=== PATIENT | female | born 1985 | race Caucasian/White ===

== ENCOUNTER 2019-02-28 05:09 | Inpatient (IN) | payer BC ==
--- NOTE | 2019-02-22 07:45 | PCM.LDHP ---
L&D History of Present Illness - General Date of Service: 02/28/19 Admit Problem/Dx: Admission Diagnosis/Problem Admission Diagnosis/Problem 02/22/19 07:33 Maria Luisa is a 33-year-old 2 para 1001 white female is scheduled for admission on 02/28/2019 at 39-1/7 weeks gestational age with an BENNIE of 03/06/2019 with the diagnosis of nas breech presentation. She is admitted for an attempt at external cephalic version. If successful will proceed to induction of labor. If unsuccessful will proceed to primary section. Source of Information: Patient History Limitations: Reports: No Limitations - History of Present Illness Introduction:: Maria Luisa is a 33-year-old 2 para 1001 white female is scheduled for admission on 02/28/2019 at 39-1/7 weeks gestational age with an BENNIE of 03/06/2019 with the diagnosis of nas breech presentation. She is admitted for an attempt at external cephalic version. If successful will proceed to induction of labor. If unsuccessful will proceed to primary section.Patient is been noted for the last 4 weeks that babies been in a breech presentation, confirmed with ultrasound. It appears to be nas breech presentation. There is normal amount of amniotic fluid. size is appropriate for dates. The procedure, risks, benefits and alternatives of care including external cephalic version, primary section or delivery of the baby by vaginal breech are discussed in detail with patient. Patient appears to understand and wishes to proceed with attempted external cephalic version. She is made aware of the risks of external cephalic version, success rate of 50-60% and possible need for dissection if unsuccessful. She is also aware that if version is successful we'll proceed with induction of labor with near continuous monitoring of heart tones. COMPUTER SYSTEMS SUPPORT SPECIALIST history: Patient is a 2 para 1001. Her BENNIE is 03/06/2019 placing her at 39-1/7 weeks gestational age upon admission for this version attempt. BENNIE is set by a certain last menstrual starting on 05/30/2018 and supported by at least 3 ultrasounds done on 08/15/2018 10/26/2018 end 02/06/2019. Estimated weight on last ultrasound was 6 lbs. 2 oz. (2789 g). Ultimately unremarkable. She is a centering patient. Her group B strep screen was negative on 02/08/2019. She plans to breast-feed the baby. She had an Hartley depression screening score of 0/30 on 11/02/2018. She underwent genetic testing which was negative. Quad screen was performed. Weight gain during the course of the was from 140 pounds up to 158 pounds for an 18 pound gain. Her fundal height growth has been appropriate. Her vital signs have been stable. Baby has been active. Past obstetric history includes the following: Normal spontaneous vaginal delivery 04/11/2016 at 40-1/7 weeks gestational age after 24 hours labor. weight 6 lbs. 15 oz.-female infant- back extraction delivery. Child's name is Tex Bartlett Laboratory testing and shows blood to be O+ with a negative and by screen. First hemoglobin was 13.2 g/dL. Platelets were 285,000. She is rubella immune. RPR is nonreactive. Urine culture was negative. Hepatitis B surface antigen and HIV assay were both negative. Chlamydia and gonorrhea assays were both negative. Second trimester labs showed hemoglobin 12.2 g/ deciliter. Platelets are 235,000 and diabetic screening test was normal at 82. Third trimester RPR was nonreactive. Group B strep screen was negative. Allergies: penicillins-reaction unknown Medications: 1. vitamins 1 daily 2. Ranitidine 150 mg by mouth daily when necessary for dyspepsia 3. Triamcinolone acetonide 0.025 external cream applied when necessary. Past medical history: 1. Normal spontaneous vaginal delivery 04/11/2016 at 40-1/7 weeks gestational age after 24 hours labor. weight 6 lbs. 15 oz.female infantback extraction delivery. Child's name is Tex Bartlett 2. Abnormal passer 2092. Eczema with first treatment in 2014 Family history: He prepped mother is alive and well at age 61 on antihypertensive medications. Father is alive and well at age 61. One sister with hypothyroidism on medication. Paternal grandfather secondary to uncontrolled diabetes. Maternal grandmother is alive and well. Paternal grandfather secondary blood vessels/heart disease. Paternal grandmother is alive and well. No family history of cancer, bleeding disorders, clotting disorders, anesthesia or -related issues. Social history: Patient is , lives in [place]. She does not use any significant most alcohol, drugs or tobacco. Out graduate. is [employer]. Review of systems: In general patient has no complaints. He is active. No contractions noted. Skin: Negative Lungs: No infectious symptoms or shortness of breath Cardiovascular: No chest pain or exercise intolerance Breasts: Changes associated with . GI: Negative : Body habitus changes associated with . Musculoskeletal: Negative Neurological: Negative In general the patient is well-developed, well-nourished, pleasant female of stated age in no acute distress. Baby has been active. On last evaluation in clinic blood pressure was 122/78. Weight was 158 increased from a pre weight of 140. Height is 5 feet 1. Prepregnancy body mass index is 26.4. Skin is warm dry without lesions. HEENT, neck and back within normal limits. Lungs are clear with good breath sounds in all lung pearson. Cardiovascular exam shows regular and rhythm without murmurs. Breast exam is deferred abdomen not first visit and found to be normal. Patient plans to breast-feed. Abdomen is gravid consistent with term intrauterine with last fundal height at 38 cm. Genital digital exam on last evaluation clinic shows cervix to be 2 cm, 60% effaced, soft, mid position, -3 station, breech presentation. Extremities and neurological exam are grossly within normal limits. - Related Data Allergies/Adverse Reactions: Allergies Allergy/AdvReac Type Severity Reaction Status Date / Time Penicillins Allergy Rash Verified 04/10/16 11:36 Home Medications: Home Meds Ibuprofen [IJD: Ibuprofen] 600 mg PO Q4H PRN #30 tablet 04/12/16 [Rx] Vit with Ca/FA/Iron [ Plus Iron] 1 each PO DAILY tablet [Rx] Past Medical History - Past Surgical History HEENT Surgical History: Reports: Oral Surgery Social & Family History - Family History Family Medical History: Noncontributory H&P Review of Systems - Review of Systems: Review Of Systems: See Below L&D Exam - Exam Exam: See Below Problem List Initiated/Reviewed/Updated: Yes Assessment/Plan Comment:: 1. 39-06/06 week intrauterine at the time of planned admission for attempt at external cephalic version for nas breech presentation. Procedure, risks, benefits, limitations and follow-up also success rate are discussed with patient in detail. She is understanding that if version is successful she will proceed to induction of labor and if unsuccessful will proceed to primary section. section has been discussed in detail with the patient also. She is comfortable with this plan. 2. Group B strep screen negative 3. Patient plans to breast-feed 4. RPR is nonreactive. 5. Rubella titer shows immunity. 6. T dap Was given on 01/04/2019 Plan: 1. Attempt at external cephalic version under ultrasound guidance after treatment with terbutaline IV. If successful will proceed to Pitocin induction of labor with artificial rupture membranes augmentation. If unsuccessful proceed to primary section. Both procedures have been discussed with patient including risks benefits and limitations and follow-up. 2. DVT prophylaxis with SCDs if we proceed with section or if patient is in labor with epidural. 3. Preoperative labs consistent CBC, urinalysis, RPR per protocol, type and screen 4. If we proceed to section will give prophylactic antibiotics of Ancef 2 g IV preop. 5. Support breast-feeding decision. We proceed to section will have nurse present in the recovery room so patient is allowed to nurse at that time.
[~2019-02-28 05:09] MED LIST: Nalbuphine 10 MG/1 ML Vial IVPUSH PRN; Sodium Chloride 0.9% 10 ML Syringe FLUSH PRN
[2019-02-28] MEDS ORDERED: Lactated Ringers 1,000 ML IV SCH (05:15)
[2019-02-28] MEDS ORDERED: FLU Vacc QS2019-20(6MOS+)/PF 60 MCG/0.5 ML SYRINGE IM ONE (06:30)
--- NOTE | 2019-02-28 06:49 | PCM.PREANE ---
Preanesthetic Assessment - Anesthesia/Transfusion/Family Hx Anesthesia History: Prior Anesthesia Without Reaction Family History of Anesthesia Reaction: No Transfusion History: No Prior Transfusion(s) Intubation History: Unknown - Review of Systems General: No Symptoms Pulmonary: No Symptoms (ETOH: socially when not ) Cardiovascular: No Symptoms Gastrointestinal: No Symptoms (GERD) Neurological: No Symptoms Other: Reports: Sinus Problem (recent sinus infection 2 weeks ago/on an antibiotic, post nasal drip still noted.) - Physical Assessment NPO Status Date: 02/27/19 NPO Status Time: 19:00 Vital Signs: Last Vital Signs Temp 37.1 C 02/28/19 05:08 Pulse 70 02/28/19 05:08 Resp 16 02/28/19 05:08 BP 124/86 02/28/19 05:08 Pulse Ox 97 02/28/19 05:08 Height: 1.55 m Weight: 72.575 kg ASA Class: 2 Mental Status: Alert & Oriented x3 Airway Class: Mallampati = 2 Dentition: Reports: Normal Dentition, Caries Thyro-Mental Finger Breadths: 3 Mouth Opening Finger Breadths: 3 ROM/Head Extension: Full Lungs: Clear to Auscultation, Normal Respiratory Effort Cardiovascular: Regular Rate, Regular Rhythm, No Murmurs - Lab Values: Laboratory Last Values WBC 10.56 K/mm3 (3.98-10.04) H 02/28/19 05:25 RBC 4.60 M/mm3 (3.98-5.22) 02/28/19 05:25 Hgb 13.1 gm/dl (11.2-15.7) 02/28/19 05:25 Hct 37.7 % (34.1-44.9) 02/28/19 05:25 MCV 82.0 fl (79.4-94.8) D 02/28/19 05:25 MCH 28.5 pg (25.6-32.2) 02/28/19 05:25 MCHC 34.7 g/dl (32.2-35.5) 02/28/19 05:25 RDW Std Deviation 40.0 fL (36.4-46.3) 02/28/19 05:25 Plt Count 253 K/mm3 (182-369) 02/28/19 05:25 MPV 11.1 fl (9.4-12.3) 02/28/19 05:25 Neut % (Auto) 57.1 % (34.0-71.1) 02/28/19 05:25 Lymph % (Auto) 33.3 % (19.3-51.7) 02/28/19 05:25 Lee % (Auto) 8.0 % (4.7-12.5) 02/28/19 05:25 Eos % (Auto) 1.0 (0.7-5.8) 02/28/19 05:25 Baso % (Auto) 0.6 % (0.1-1.2) 02/28/19 05:25 Neut # (Auto) 6.02 K/mm3 (1.56-6.13) 02/28/19 05:25 Lymph # (Auto) 3.52 K/mm3 (1.18-3.74) 02/28/19 05:25 Lee # (Auto) 0.85 K/mm3 (0.24-0.36) H 02/28/19 05:25 Eos # (Auto) 0.11 K/mm3 (0.04-0.36) 02/28/19 05:25 Baso # (Auto) 0.06 K/mm3 (0.01-0.08) 02/28/19 05:25 Blood Type O POSITIVE 02/28/19 05:25 Gel Antibody Screen Negative 02/28/19 05:25 Above labs reviewed and noted and within acceptable ranges to proceed with procedure. - Allergies Allergies/Adverse Reactions: Allergies Allergy/AdvReac Type Severity Reaction Status Date / Time Penicillins Allergy Rash Verified 02/28/19 05:24 - Anesthesia Plan Pre-Op Medication Ordered: None - Acknowledgements Anesthesia Type Planned: Spinal, Epidural Pt an Appropriate Candidate for the Planned Anesthesia: Yes Alternatives and Risks of Anesthesia Discussed w Pt/Guardian: Yes Pt/Guardian Understands and Agrees with Anesthesia Plan: Yes PreAnesthesia Questionnaire - Past Surgical History HEENT Surgical History: Reports: Oral Surgery - HOME MEDS Home Medications: Home Meds Vit with Ca/FA/Iron [ Plus Iron] 1 each PO DAILY tablet [Rx] - CURRENT (IN HOUSE) MEDS Current Meds: Current Medications Lactated Ringer's (Ringers, Lactated) 1,000 mls @ 100 mls/hr IV ASDIRECTED JACINTA Influenza Virus Vaccine (Pharmacy To Dose - Influenza Vaccine) 1 each IM ONETIME ONE Stop: 02/28/19 06:13 Nalbuphine HCl (Nubain) 10 mg IVPUSH Q2H PRN PRN Reason: Pain Sodium Chloride (Saline Flush) 10 ml FLUSH ASDIRECTED PRN PRN Reason: Keep Vein Open Terbutaline Sulfate (Brethine) 0.25 mg IV ONETIME ONE Stop: 02/28/19 07:01 Discontinued Medications Influenza Virus Vaccine (Fluzone Quad Syringe) 60 mcg IM .ONCE ONE Stop: 02/28/19 06:31
[2019-02-28] MEDS ORDERED: Terbutaline 1 MG/ML SDV IV ONE (07:00)
[2019-02-28] MEDS ORDERED: Citric Acid/Sodium Citrate Solution 30 ML Cup PO ONE (07:27)
[2019-02-28] MEDS ORDERED: Metoclopramide 10 MG/2 ML SDV IVPUSH ONE (07:27)
[2019-02-28] MEDS ORDERED: Metoclopramide 10 MG/2 ML SDV ONE (07:30)
[2019-02-28] MEDS ORDERED: Citric Acid/Sodium Citrate Solution 30 ML Cup ONE (07:31)
[2019-02-28] MEDS ORDERED: Bupivacaine 0.5% 30 ML SDV ONE (07:33)
[2019-02-28] MEDS ORDERED: Ketorolac 30 MG/ML SDV ONE (07:37)
[2019-02-28] MEDS ORDERED: Lactated Ringers 2,000 ML ONE (07:37)
[2019-02-28] MEDS ORDERED: Ondansetron 4 MG/2 ML SDV ONE (07:37)
[2019-02-28] MEDS ORDERED: Phenylephrine/Normal Saline 100 MCG/ML 10 ML Syringe ONE (07:37)
[2019-02-28] MEDS ORDERED: Oxytocin 10 Units/1 ML SDV ONE (07:37)
[2019-02-28] MEDS ORDERED: ceFAZolin 1 GM Vial ONE (07:37)
[2019-02-28] MEDS ORDERED: Morphine PF 10 MG/10 ML SDV ONE (07:39)
--- NOTE | 2019-02-28 07:57 | PCM.SN ---
- Free Text/Narrative Note: Procedure Note: Attempt at external cephalic version Patient is admitted early on the morning of 02/28/2019 diagnosis 39-1/7 week intrauterine , nas breech presentation. Plan was to proceed with an attempt at external cephalic version and if successful induction of labor. If unsuccessful proceed to primary section. The procedure, risks, benefits , alternatives of care including proceeding right away to all discussed with patient. She appeared to understand, wish to proceed and had signed consents for both. She had previous labs drawn and completed and had an IV in place. Patient been monitored for an extended period time and had a reactive nonstress test. She is showing no significant signs of labor other than an occasional contraction. Bedside ultrasound was performed and showed continuation of nas breech presentation. She was administered 0.25 mg of terbutaline IV which had been diluted to 5 mL with IV fluid. This administered over 2-3 minutes. Attempt was then made under ultrasound guidance to turn the baby. Attempted was made to roll the baby forward as baby's back was to the patient's left. This however was unsuccessful. Patient tolerated this well. Monitoring of heart rate showed the heart rate went down with this but rebounded without problems. A second attempt was made upon the request of the patient. This also was unsuccessful and decision was made to proceed to section. monitoring thereafter was reassuring until patient was transferred for C- section. She tolerated well.
[2019-02-28] MEDS ORDERED: fentaNYL 100 MCG/2 ML SDV IVPUSH PRN (08:11)
[2019-02-28] MEDS ORDERED: diphenhydrAMINE 50 MG/ML SDV IVPUSH PRN ×2 (08:11→09:50)
[2019-02-28] MEDS ORDERED: ePHEDrine 50 MG/ML SDV IVPUSH PRN ×2 (08:11→09:50)
[2019-02-28] MEDS ORDERED: Ondansetron 4 MG/2 ML SDV IVPUSH PRN (08:11)
[2019-02-28] MEDS ORDERED: HYDROmorphone 0.5 MG/0.5 ML Syringe IVPUSH PRN (08:11)
[2019-02-28] MEDS ORDERED: Phenylephrine 1 MG in Sodium Chloride 0.9% 10 ML IV SCH (08:15)
--- NOTE | 2019-02-28 08:50 | PCM.POSTAN ---
POST ANESTHESIA ASSESSMENT - MENTAL STATUS Mental Status: Alert - VITAL SIGNS Vital Signs: Last Vital Signs Temp 97.8f 02/28/19 0840 Pulse 80 02/28/19 0840 Resp 10 02/28/19 0840 BP 99/66 02/28/19 0840 Pulse Ox 97 02/28/19 0840 - RESPIRATORY Respiratory Status: Respiratory Rate WNL, Airway Patent, O2 Saturation Stable - CARDIOVASCULAR CV Status: Pulse Rate WNL, Blood Pressure Stable - GASTROINTESTINAL GI Status: No Symptoms - POST OP HYDRATION Hydration Status: Adequate & Stable
--- NOTE | 2019-02-28 08:55 | PCM.OPNOTE ---
- General Post-Op/Procedure Note Date of Surgery/Procedure: 02/28/19 Operative Procedure(s): Primary lower uterine segment transverse section through Pfannenstiel skin incision Findings: Uterus, tubes and ovaries consistent with term . Baby in nas breech presentation. Amniotic fluid is clear. No abnormalities noted. Pre Op Diagnosis: 1. 39-1/7 week intrauterine , nas breech presentation Post-Op Diagnosis: Same with delivery of viable, alonso, male with Apgars of 8 and 8, weight of 3180 g (7 lbs. 15 oz.) at 0813 hrs. on 02/28/2019. Anesthesia Technique: Spinal Other Anesthesia Type: Marcaine 0.5%20 mL local Primary Surgeon: Santana Gutierrez Secondary Surgeon: Victorino Jones Anesthesia Provider: Alison Hendrickson Yarn Wrapper: Emil Chairez Reason Yarn Wrapper Was Necessary: Retraction, assistance, patient safety, quality. Fluid Replacement, Intraop: 1,400 Output, Urine Amount: 100 EBL in mLs: 500 Drain/Tube Comments:: Indwelling bladder catheter Complications: None Condition: Good Free Text/Narrative:: Surgery duration: 24 minutes Surgery duration: Procedure: The patient is appropriately consented. Patient was transferred to the room and placed in a sitting position. Spinal anesthesia was administered. After confirmation of adequate anesthesia patient was placed in a supine position with a wedge under her right side to facilitate left lateral positioning. The patient was prepped and draped in usual fashion after Tidwell catheter was already placed . The anesthetic was checked and found to be adequate. 20 mL of Marcaine 0.5% was injected locally in the Pfannenstiel incision site. The Pfannenstiel skin incision was then made and carried down through skin, subcutaneous and fascial layers. The fascia was then undermined superiorly and inferiorly to allow for adequate operating room. The recti muscles midline and preperitoneal fat was bluntly dissected. Peritoneal cavity was entered longitudinally. The vesicouterine peritoneum was then incised transversely and bladder flap was developed. Myometrium was incised transversely to the level of the amniotic sac. This incision was extended bilaterally in a blunt fashion. The amniotic sac was then ruptured resulting in clear amniotic fluid. A hand is placed in the low uterine segment and the baby's breech was brought forth through the incision. The baby was completely delivered using fundal pressure, complete breech extraction technique in a routine fashion. The nose and mouth were bulb suctioned. Baby's cord was clamped x2 cut and baby was handed off to attending bureau director Dr akers. Placenta was expressed after cord blood was obtained. Uterus was then exteriorized to allow for easier closure. The cervix was assessed and found to be dilated adequately to allow egress of blood. The uterus was closed in 2 layers. The first layer a running locked suture of 0 Monocryl, the second layer a running locked vertical mattress suture of 0 Monocryl. [id number] suture was placed at mid incision to control 1 bleeder. Hemostasis confirmed at this time. Sponge instrument needle counts are correct. The uterus was returned to the abdominal cavity and lateral gutters were cleared of blood. Once again sponge needle counts are correct. The anterior abdominal wall was closed with a #1 PDS suture from angle to angle. Skin was closed with a running subcuticular stitch of 3-0 Monocryl in a vertical mattress suture fashion using a Jonnie needle. Prineo mesh/glue was then applied to further approximate the incision. It should be noted that patient received 2 g of Ancef preoperatively for infection prophylaxis and had Pitocin infused after delivery of the placenta to facilitate uterine contraction. She also had sequential compression stockings in place for DVT prophylaxis. Patient was discharged from the operating room in satisfactory condition.
[2019-02-28] MEDS ORDERED: Lanolin 100% Cream 7 GM Tube TOP PRN (09:50)
[2019-02-28] MEDS ORDERED: Ondansetron 4 MG/2 ML SDV IV PRN (09:50)
[2019-02-28] MEDS ORDERED: Docusate Sodium 100 MG Cap PO PRN (09:50)
[2019-02-28] MEDS ORDERED: Naloxone 0.4 MG/ML SDV IVPUSH PRN (09:50)
[2019-02-28] MEDS ORDERED: Dextrose 5%-Lactated Ringers 1,000 ML IV SCH ×2 (09:50→15:00)
[2019-02-28] MEDS: Simethicone 80 MG Tab.Chew PO SCH ×4 (12:21→20:04)
[2019-02-28] MEDS: Prenatal Multivitamin with Calcium/Folic Acid/Iron Tab PO SCH (12:22)
[2019-02-28] MEDS ORDERED: Sodium Chloride 0.9% 1,000 ML IV ONE (12:37)
[2019-02-28] MEDS: Ketorolac 30 MG/ML SDV IVPUSH SCH ×2 (13:59→20:02)
[2019-03-01] MEDS: Ketorolac 30 MG/ML SDV IVPUSH SCH (01:55)
--- NOTE | 2019-03-01 07:34 | PCM48HPAN ---
Post Anesthesia Note - EVALUATION WITHIN 48HRS OF ANESTHETIC Vital Signs in Normal Range: Yes Patient Participated in Evaluation: Yes Respiratory Function Stable: Yes Airway Patent: Yes Cardiovascular Function Stable: Yes Hydration Status Stable: Yes Pain Control Satisfactory: Yes Nausea and Vomiting Control Satisfactory: Yes Mental Status Recovered: Yes Vital Signs: Last Vital Signs Temp 36.3 C 03/01/19 04:16 Pulse 64 03/01/19 04:16 Resp 16 03/01/19 06:41 BP 122/84 03/01/19 04:16 Pulse Ox 98 03/01/19 06:41
[2019-03-01] MEDS: Simethicone 80 MG Tab.Chew PO SCH ×4 (08:18→20:16)
[2019-03-01] MEDS: Ibuprofen 800 MG Tab PO SCH ×2 (08:18→16:04)
[2019-03-01] MEDS: Prenatal Multivitamin with Calcium/Folic Acid/Iron Tab PO SCH (11:39)
[2019-03-01] MEDS: Acetaminophen/oxyCODONE 325-5 MG Tab PO PRN ×2 (14:00→20:16)
[2019-03-02] MEDS: Ibuprofen 800 MG Tab PO SCH ×2 (00:38→08:27)
[2019-03-02] MEDS: Acetaminophen/oxyCODONE 325-5 MG Tab PO PRN (03:23)
--- NOTE | 2019-03-02 06:22 | PCM.SN ---
- Free Text/Narrative Note: evaluation for 03/01/2019: Patient is doing well. She has minimal discomfort. She is using ibuprofen for pain. Patient is doing well in the period. Minimal lochia, voiding well, ambulated without problems. Nursing without concerns. Patient is afebrile, vital signs are stable Abdomen is flat, soft, uterus is below the umbilicus and is firm and nontender. Legs are nontender. Hemoglobin was 10.4. Assessment: /postop day #1 recovery going well. Plan: Routine care. Patient be discharged home within the next 24-48 hours.
--- NOTE | 2019-03-02 06:28 | PCM.DCSUM1 ---
Discharge Summary - Hospital Course Free Text/Narrative:: Maria Luisa is a 33-year-old 2 now para 2002 white female was admitted on 02/28/2019 with a diagnosis of 9-1/7 week intrauterine , with a nas breech presenting . Patient had been counseled less options of care and an desire to do an attempt at external cephalic version with possible vaginal delivery. She was admitted on the morning of 02/28/2019 and attempt was made at external cephalic version under ultrasound guidance. This however was unsuccessful. She was then taken to surgery for a primary lower uterine segment transverse section through Jamie skin incision under a spinal block. She delivered a viable, alonso, male infant with Apgars of 8 and 8, weight of 3180 g 7 lbs. 15 oz.) at 0813 hrs. on 02/28/2019. Patient has had a normal recovery course with pain medication utilizing ibuprofen and small amount of Percocet. She is made good bowel, latter , ambulatory recovery. She is desiring discharge home. Her hemoglobin is 10.4. Platelets are essentially normal. Patient is breast-feeding without concerns. Condition: Good. Diagnosis: Stroke: No - Discharge Data Discharge Date: 03/02/19 Discharge Disposition: Home, Self-Care 01 Condition: Good - Referral to Home Health Primary Care Physician: Santana Gutierrez MD - Patient Summary/Data Operative Procedure(s) Performed: Primary lower uterine segment transverse section through Pfannenstiel skin incision - Patient Instructions Diet: Regular Diet as Tolerated (Nursing diet with increased calories and calcium is recommended) Activity: As Tolerated (No intercourse or tampons until bleeding resolves. No driving a car lifting greater than 15 pounds 1 week.) Driving: Do Not Drive Showering/Bathing: May Shower Wound/Incision Care: Keep Operative Site/Wound Site Clean and Dry Notify Provider of: Fever, Increased Pain, Swelling and Redness, Drainage, Nausea and/or Vomiting - Discharge Plan Home Medications: Home Meds Dql392/FA/Omega3/Dha/Fish Oil [ Gummies] 1 each PO DAILY 02/28/19 [ History] Acetaminophen/oxyCODONE [Percocet 325-5 MG] 2 tab PO Q4H PRN tablet 03/02/19 [ Rx] Ibuprofen [Motrin] 800 mg PO Q8H tablet 03/02/19 [Rx] Patient Handouts: Breast Pumping Tips, and Self-Care, and Returning to Work, Delivery, Care After Referrals: Santana Gutierrez MD [Primary Care Provider] - (Return to clinic[facility]. [facility]ierrez2 weeks.) - Discharge Summary/Plan Comment DC Time >30 min.: No Discharge Summary/Plan Comment: Discharge instructions: 1. Discharge home 2. Diet, activity and follow-up discussed with patient. Recommend nursing diet with increased calories and calcium. 3. Precautions given concern increased pain, bleeding, temperature, signs/ symptoms of DVT/PE. 4. Medications per home medication was printed, discussed with and given to the patient. 5. Return to clinic-Dr. Gutierrez-[facility] in 2 weeks. Diagnosis: Term [id number]-14-8/7 weeks gestational age-Nas breech presentation , unsuccessful attempt at external cephalic version-delivered Condition: Good - Patient Data Vitals - Most Recent: Last Vital Signs Temp 36.6 C 03/02/19 03:18 Pulse 63 03/02/19 03:18 Resp 14 03/02/19 03:18 BP 110/92 H 03/02/19 03:18 Pulse Ox 98 03/02/19 03:18 Weight - Most Recent: 72.575 kg I&O - Last 24 hours: Intake & Output 03/01/19 03/01/19 03/02/19 14:59 22:59 06:59 Intake Total 240 Output Total 1100 Balance -860 Lab Results - Last 24 hrs: Laboratory Results - last 24 hr 03/01/19 Range/Units 05:14 WBC 10.49 H (3.98-10.04) K/mm3 RBC 3.72 L (3.98-5.22) M/mm3 Hgb 10.4 L D (11.2-15.7) gm/dl Hct 31.1 L (34.1-44.9) % MCV 83.6 (79.4-94.8) fl MCH 28.0 (25.6-32.2) pg MCHC 33.4 (32.2-35.5) g/dl RDW Std Deviation 40.8 (36.4-46.3) fL Plt Count 178 L D (182-369) K/mm3 MPV 11.0 (9.4-12.3) fl Neut % (Auto) 72.6 H (34.0-71.1) % Lymph % (Auto) 21.0 (19.3-51.7) % [place] % (Auto) 5.5 (4.7-12.5) % Eos % (Auto) 0.6 L (0.7-5.8) Baso % (Auto) 0.3 (0.1-1.2) % Neut # (Auto) 7.62 H (1.56-6.13) K/mm3 Lymph # (Auto) 2.20 (1.18-3.74) K/mm3 [place] # (Auto) 0.58 H (0.24-0.36) K/mm3 Eos # (Auto) 0.06 (0.04-0.36) K/mm3 Baso # (Auto) 0.03 (0.01-0.08) K/mm3 Med Orders - Current: Current Medications Diphenhydramine HCl (Benadryl) 25 mg IVPUSH Q6H PRN PRN Reason: Itching or Nausea Docusate Sodium (Colace) 100 mg PO Q12H PRN PRN Reason: Constipation Emollient Ointment (Lansinoh Hpa) 0 gm TOP ASDIRECTED PRN PRN Reason: Sore Nipples Ephedrine Sulfate (Ephedrine Sulfate) 5 mg IVPUSH SEECOMMENT PRN PRN Reason: Other Ibuprofen (Motrin) 800 mg PO Q8H [facility] Last Admin: 03/02/19 00:38 Dose: 800 mg Naloxone HCl (Narcan) 0.1 mg IVPUSH SEECOMMENT PRN PRN Reason: Respiratory Depression Ondansetron HCl (Zofran) 4 mg IV Q4H PRN PRN Reason: Nausea/Vomiting Oxycodone/Acetaminophen (Percocet 325-5 Mg) 2 tab PO Q4H PRN PRN Reason: Pain (moderate 4-6) Last Admin: 03/02/19 03:23 Dose: 1 tab Prenat Multivit/Bread Oven Operator/Iron/Folic Ac ( Plus Iron) 1 each PO DAILY [facility] Last Admin: 03/01/19 11:39 Dose: Not Given Simethicone (Simethicone) 160 mg PO QID [facility] Last Admin: 03/01/19 20:16 Dose: 160 mg Discontinued Medications Bupivacaine HCl (Marcaine 0.5%) Confirm Administered Dose 30 ml .ROUTE .[facility] ONE Stop: 02/28/19 07:34 Last Admin: 02/28/19 12:55 Dose: 20 ml Cefazolin Sodium (Ancef) Confirm Administered Dose 2 gm .ROUTE .[facility] ONE Stop: 02/28/19 07:38 Citric Acid/Sodium Citrate (Bicitra Solution) 30 ml PO ONETIME ONE Stop: 02/28/19 07:28 Last Admin: 02/28/19 07:34 Dose: 30 ml Citric Acid/Sodium Citrate (Bicitra Solution) Confirm Administered Dose 30 ml .ROUTE .[facility] ONE Stop: 02/28/19 07:32 Last Admin: 02/28/19 09:54 Dose: Not Given Diphenhydramine HCl (Benadryl) 25 mg IVPUSH Q6H PRN PRN Reason: pruritis Ephedrine Sulfate (Ephedrine Sulfate) 5 mg IVPUSH ASDIRECTED PRN PRN Reason: Hypotension Fentanyl (Sublimaze) 50 mcg IVPUSH Q5M PRN PRN Reason: Pain Hydromorphone HCl (Dilaudid) 0.5 mg IVPUSH Q15M PRN PRN Reason: Pain (severe 7-10) Lactated Ringer's (Ringers, Lactated) 1,000 mls @ 100 mls/hr IV ASDIRECTED [facility] Last Admin: 02/28/19 07:13 Dose: 100 mls/hr Lactated Ringer's (Ringers, Lactated) Confirm Administered Dose 2,000 mls @ as directed .ROUTE .[facility] ONE Stop: 02/28/19 07:38 Phenylephrine HCl 1 mg/ Sodium (Chloride) 10.1 mls @ 1 mls/sec IV TITRATE JACINTA; Protocol Dextrose/Lactated Ringer's (Dextrose 5%-Lactated Ringers) 1,000 mls @ 125 mls/ hr IV ASDIRECTED [facility] Stop: 02/28/19 17:49 Last Admin: 02/28/19 10:02 Dose: 125 mls/hr Sodium Chloride (Normal Saline) 1,000 mls @ 999 mls/hr IV ONETIME ONE Stop: 02/28/19 13:37 Last Admin: 02/28/19 12:44 Dose: 999 mls/hr Dextrose/Lactated Ringer's (Dextrose 5%-Lactated Ringers) 1,000 mls @ 200 mls/ hr IV ASDIRECTED [facility] Last Admin: 02/28/19 15:03 Dose: 200 mls/hr Influenza Virus Vaccine (Pharmacy To Dose - Influenza Vaccine) 1 each IM ONETIME ONE Stop: 02/28/19 06:13 Last Admin: 02/28/19 12:05 Dose: Not Given Influenza Virus Vaccine (Fluzone Quad Syringe) 60 mcg IM .ONCE ONE Stop: 02/28/19 06:31 Ketorolac Tromethamine (Toradol) Confirm Administered Dose 30 mg .ROUTE .STK- MED ONE Stop: 02/28/19 07:38 Ketorolac Tromethamine (Toradol) 30 mg IVPUSH Q6H [facility] Stop: 03/01/19 02:01 Last Admin: 03/01/19 01:55 Dose: 30 mg Metoclopramide HCl (Reglan) 10 mg IVPUSH ONETIME ONE Stop: 02/28/19 07:28 Last Admin: 02/28/19 07:31 Dose: 10 mg Metoclopramide HCl (Reglan) Confirm Administered Dose 10 mg .ROUTE .STK-MED ONE Stop: 02/28/19 07:31 Last Admin: 02/28/19 09:54 Dose: Not Given Morphine Sulfate (Duramorph Pf) Confirm Administered Dose 10 mg .ROUTE .STK-MED ONE Stop: 02/28/19 07:40 Nalbuphine HCl (Nubain) 10 mg IVPUSH Q2H PRN PRN Reason: Pain Ondansetron HCl (Zofran) Confirm Administered Dose 4 mg .ROUTE .STK-MED ONE Stop: 02/28/19 07:38 Ondansetron HCl (Zofran) 4 mg IVPUSH ONETIME PRN PRN Reason: Nausea/Vomiting Oxytocin (Pitocin) Confirm Administered Dose 20 unit .ROUTE .STK-MED ONE Stop: 02/28/19 07:38 Phenylephrine HCl (Phenylephrine In Ns 100 Mcg/Ml) Confirm Administered Dose 1 mg .ROUTE .STK-MED ONE Stop: 02/28/19 07:38 Sodium Chloride (Saline Flush) 10 ml FLUSH ASDIRECTED PRN PRN Reason: Keep Vein Open Terbutaline Sulfate (Brethine) 0.25 mg IV ONETIME ONE Stop: 02/28/19 07:01 Last Admin: 02/28/19 07:11 Dose: 0.25 mg
[2019-03-02] MEDS: Simethicone 80 MG Tab.Chew PO SCH (08:27)
[2019-03-02] MEDS: Prenatal Multivitamin with Calcium/Folic Acid/Iron Tab PO SCH (08:28)
[2019-03-02 08:35] VITALS: BP 130/90; PULSE 72
[2019-03-02] MEDS: FLU Vacc QS2019-20(6MOS+)/PF 60 MCG/0.5 ML SYRINGE IM ONE ×2 (09:45→10:09)
== END 2019-03-02 10:31 | disposition home or self-care (01) | DRG 540 ==
LOC: JD.OB 05:09 → OBSVTOIN 07:27 → EDSTATUS 07:30 → JD.OB 08:13
PROVIDERS: ADMIT Obstetrics & Gynecology; ATTEND Obstetrics & Gynecology
PROC: 10D00Z1 Extraction of Products of Conception, Low, Open Approach (ICD-10-PCS; principal; 2019-02-28)
PROC: 3E02340 Introduction of Influenza Vaccine into Muscle, Percutaneous Approach (ICD-10-PCS; 2019-02-28)
DX: O32.1XX0 Maternal care for breech presentation, not applicable or unspecified (principal); Z3A.39 39 weeks gestation of pregnancy; Z37.0 Single live birth; Z79.899 Other long term (current) drug therapy; Z88.0 Allergy status to penicillin; Z23 Encounter for immunization
CPT/HCPCS: 01961; 36415; 59025; 59412; 85025; 86592; 86850; 86900; 86901; 90686; A9270-GY; J0690; J1885; J2270; J2370; J2405; J2590; J2765; J3105; J3490; J7040; J7042; J7120